=== PATIENT | female | born 1940 | race Caucasian/White ===

== ENCOUNTER 2023-01-08 08:26 | Emergency (ER) | payer MEDICARE ==
[~2023-01-08] VITALS: Ht 162.6 cm; Wt 57.2 kg
[2023-01-08 08:55] VITALS: BP 132/99
[2023-01-08] MEDS ORDERED: MORPHINE 2 MG SYG IM ONE (09:00)
[2023-01-08] MEDS ORDERED: MORPHINE 2 MG SYG ONE (09:27)
[2023-01-08] MEDS ORDERED: IBUP-1493 PO (09:38)
[2023-01-08] MEDS ORDERED: GABA300C PO (09:38)
[2023-01-08] MEDS ORDERED: CYCL-309 PO (09:38)
== END 2023-01-08 10:06 | disposition home or self-care (01) ==
LOC: EDH 08:26
DX: M54.50 Low back pain, unspecified (principal); I48.91 Unspecified atrial fibrillation
CPT/HCPCS: 72100; 72170; 96372